=== PATIENT | male | born 1945 ===

== ENCOUNTER 2023-02-19 07:06 | Day surgery (SDC) | payer OTHER ==
[~2023-02-19 07:06] MED LIST: TOPAMAX25 MG PO; TOPROL XL25 M1 PO
[2023-02-19] MEDS ORDERED: CLEOCIN HCL300 MG PO (13:43)
[2023-02-19] MEDS ORDERED: CILOXAN5 ML OTIC (13:44)
== END 2023-02-19 15:45 | disposition home or self-care (01) ==
LOC: CIR.AMB 07:06
PROVIDERS: ATTEND Otolaryngology Otology & Neurotology
DX: H72.02 Central perforation of tympanic membrane, left ear (principal); H90.A12 Conductive hearing loss, unilateral, left ear with restricted hearing on the contralateral side; Z20.822 Contact with and (suspected) exposure to COVID-19; Z88.0 Allergy status to penicillin; I10 Essential (primary) hypertension